=== PATIENT | female | born 1970 | race Caucasian/White ===

== ENCOUNTER 2021-10-11 12:56 | Outpatient (REF) | payer BC, SELFPAY | END 2021-10-11 12:57 | disposition home or self-care (01) | LOC: HO.BBR 12:56 | PROVIDERS: PCP Internal Medicine; Visit Provider Internal Medicine Hematology | DX: D75.1 Secondary polycythemia (principal) | CPT/HCPCS: 85018; 99195 ==

== ENCOUNTER 2021-10-25 07:59 | Outpatient (REF) | payer BC, SELFPAY | END 2021-10-25 08:00 | disposition home or self-care (01) | LOC: HO.BBR 07:59 | PROVIDERS: Visit Provider Internal Medicine Hematology | DX: D75.1 Secondary polycythemia (principal) | CPT/HCPCS: 85014; 85018; 99195 ==

== ENCOUNTER 2021-11-20 07:52 | Outpatient (REF) | payer BC, SELFPAY | END 2021-11-20 07:53 | disposition home or self-care (01) | LOC: HO.BBR 07:52 | PROVIDERS: Visit Provider Internal Medicine Hematology | DX: D75.1 Secondary polycythemia (principal) | CPT/HCPCS: 85018; 99195 ==

== ENCOUNTER 2021-12-13 07:59 | Outpatient (REF) | payer BC, SELFPAY | END 2021-12-13 08:00 | disposition home or self-care (01) | LOC: HO.BBR 07:59 | PROVIDERS: Visit Provider Internal Medicine Hematology | DX: D75.1 Secondary polycythemia (principal) | CPT/HCPCS: 85018; 99195 ==

== ENCOUNTER 2021-12-27 08:27 | Outpatient (REF) | payer BC, SELFPAY | END 2021-12-27 08:28 | disposition home or self-care (01) | LOC: HO.BBR 08:27 | PROVIDERS: Visit Provider Internal Medicine Hematology | DX: D75.1 Secondary polycythemia (principal) | CPT/HCPCS: 85018; 99195 ==

== ENCOUNTER 2022-01-10 08:03 | Outpatient (REF) | payer BC, SELFPAY | END 2022-01-10 08:04 | disposition home or self-care (01) | LOC: HO.BBR 08:03 | PROVIDERS: Visit Provider Internal Medicine Hematology | DX: D75.1 Secondary polycythemia (principal) | CPT/HCPCS: 85014; 85018; 99195 ==

== ENCOUNTER 2022-01-24 07:58 | Outpatient (REF) | payer BC, SELFPAY | END 2022-01-24 07:59 | disposition home or self-care (01) | LOC: HO.BBR 07:58 | PROVIDERS: Visit Provider Internal Medicine Hematology | DX: D75.1 Secondary polycythemia (principal) | CPT/HCPCS: 85014; 85018; 99195 ==

== ENCOUNTER 2022-02-07 07:52 | Outpatient (REF) | payer BC, SELFPAY | END 2022-02-07 07:53 | disposition home or self-care (01) | LOC: HO.BBR 07:52 | PROVIDERS: Visit Provider Internal Medicine Hematology | DX: D75.1 Secondary polycythemia (principal) | CPT/HCPCS: 85018 ==

== ENCOUNTER 2022-03-14 08:01 | Outpatient (REF) | payer BC, SELFPAY | END 2022-03-14 08:02 | disposition home or self-care (01) | LOC: HO.BBR 08:01 | PROVIDERS: Visit Provider Internal Medicine Hematology | DX: D45 Polycythemia vera (principal) | CPT/HCPCS: 85018; 99195 ==

== ENCOUNTER 2022-04-11 08:00 | Outpatient (REF) | payer BC, SELFPAY | END 2022-04-11 08:01 | disposition home or self-care (01) | LOC: HO.BBR 08:00 | PROVIDERS: Visit Provider Internal Medicine Hematology | DX: D45 Polycythemia vera (principal) | CPT/HCPCS: 85014; 85018; 99195 ==

== ENCOUNTER 2022-05-09 08:03 | Outpatient (REF) | payer BC, SELFPAY | END 2022-05-09 08:04 | disposition home or self-care (01) | LOC: HO.BBR 08:03 | PROVIDERS: Visit Provider Internal Medicine Hematology | DX: D45 Polycythemia vera (principal) | CPT/HCPCS: 85014; 85018; 99195 ==

== ENCOUNTER 2022-08-15 08:02 | Outpatient (REF) | payer BC, SELFPAY | END 2022-08-15 08:03 | disposition home or self-care (01) | LOC: HO.BBR 08:02 | PROVIDERS: PCP Internal Medicine; Visit Provider Internal Medicine Hematology | DX: D45 Polycythemia vera (principal) | CPT/HCPCS: 85014; 85018; 99195 ==

== ENCOUNTER 2022-11-21 08:04 | Outpatient (REF) | payer BC, SELFPAY | END 2022-11-21 08:05 | disposition home or self-care (01) | LOC: HO.BBR 08:04 | PROVIDERS: Visit Provider Internal Medicine Hematology | DX: D45 Polycythemia vera (principal) | CPT/HCPCS: 85014; 85018; 99195 ==

== ENCOUNTER 2023-02-20 07:57 | Outpatient (REF) | payer BC, SELFPAY | END 2023-02-20 07:58 | disposition home or self-care (01) | LOC: HO.BBR 07:57 | PROVIDERS: PCP Internal Medicine; Visit Provider Internal Medicine Hematology | DX: D45 Polycythemia vera (principal) | CPT/HCPCS: 85018; 99195 ==

== ENCOUNTER 2023-05-22 07:56 | Outpatient (REF) | payer BC, SELFPAY | END 2023-05-22 07:57 | disposition home or self-care (01) | LOC: HO.BBR 07:56 | PROVIDERS: PCP Internal Medicine; Visit Provider Internal Medicine Hematology | DX: D45 Polycythemia vera (principal) | CPT/HCPCS: 85018; 99195 ==

== ENCOUNTER 2023-07-17 10:54 | Outpatient (REF) | payer BC, SELFPAY | END 2023-07-17 10:55 | disposition home or self-care (01) | LOC: HO.BBR 10:54 | PROVIDERS: PCP Internal Medicine; Visit Provider Internal Medicine Hematology | DX: D45 Polycythemia vera (principal) | CPT/HCPCS: 85014; 85018; 99195 ==

== ENCOUNTER 2023-09-14 10:56 | Outpatient (REF) | payer BC, SELFPAY | END 2023-09-14 10:57 | disposition home or self-care (01) | LOC: HO.BBR 10:56 | PROVIDERS: PCP Internal Medicine; Visit Provider Internal Medicine Hematology | DX: D45 Polycythemia vera (principal) | CPT/HCPCS: 85018; 99195 ==

== ENCOUNTER 2023-11-13 07:55 | Outpatient (REF) | payer BC, SELFPAY | END 2023-11-13 07:56 | disposition home or self-care (01) | LOC: HO.BBR 07:55 | PROVIDERS: PCP Internal Medicine; Visit Provider Internal Medicine Hematology | DX: D45 Polycythemia vera (principal) | CPT/HCPCS: 85018; 99195 ==

== ENCOUNTER 2024-01-14 08:09 | Outpatient (REF) | payer BC, SELFPAY | END 2024-01-14 08:10 | disposition home or self-care (01) | LOC: HO.BBR 08:09 | PROVIDERS: PCP Internal Medicine; Visit Provider Internal Medicine Hematology | DX: D45 Polycythemia vera (principal) | CPT/HCPCS: 85018; 99195 ==

== ENCOUNTER 2024-03-17 08:00 | Outpatient (REF) | payer BC, SELFPAY | END 2024-03-17 08:01 | disposition home or self-care (01) | LOC: HO.BBR 08:00 | PROVIDERS: PCP Internal Medicine; Visit Provider Internal Medicine Hematology | DX: D45 Polycythemia vera (principal) | CPT/HCPCS: 85014; 85018; 99195 ==

== ENCOUNTER 2024-05-19 08:02 | Outpatient (REF) | payer BC, SELFPAY ==
[2024-05-19 08:17] LABS: Basophils Absolute Auto 0.2 X10*3/uL (0.0-0.2); Basophils Percent Auto 1.4 % (0-2); Eosinophils Absolute Auto 0.7 X10*3/uL (0.0-0.4); Eosinophils Percent Auto 5.1 % (0-4); Hematocrit 49.8 % (37.0-47.0); Hemoglobin 14.3 g/dl (12.0-16.0); Imm Gran Abs Auto 0.04 X10*3/uL (0.00-0.03); Imm Gran Pct Auto 0.3 % (0.0-0.4); Lymphocytes Absolute Auto 5.6 X10*3/uL (1.2-4.9); Lymphocytes Percent Auto 43.9 % (20-40); MANUAL DIFF FLAG SCAN; Mean Corpuscular HGB Conc 28.7 g/dl (31.0-35.0); Mean Corpuscular Hemoglobin 19.9 pg (27.0-33.0); Mean Corpuscular Volume 69.2 fL (80.0-98.0); Mean Platelet Volume 9.7 fL (9.4-12.3); Neutrophils Absolute Auto 5.3 x10*3/uL (2.0-8.3); Neutrophils Percent Auto 41.3 % (45-73); Platelet Count 588 X10*3/uL (160-400); SCAN SMEAR FLAG 1; White Blood Count 12.7 X10*3/uL (4.8-10.8)
[2024-05-19 08:42] LABS: SLIDE REVIEW VERIFIED
== END 2024-05-19 08:03 | disposition home or self-care (01) ==
LOC: HO.BBR 08:02
PROVIDERS: PCP Internal Medicine; Visit Provider Internal Medicine Hematology
DX: D45 Polycythemia vera (principal)
CPT/HCPCS: 36415; 85014; 85018; 85025; 99195

== ENCOUNTER 2024-07-20 09:01 | Outpatient (REF) | payer OTHER, SELFPAY ==
[2024-07-20 09:10] LABS: MANUAL DIFF FLAG NO
[2024-07-20 09:12] LABS: Basophils Absolute Auto 0.2 X10*3/uL (0.0-0.2); Basophils Percent Auto 1.6 % (0-2); Eosinophils Absolute Auto 0.3 X10*3/uL (0.0-0.4); Eosinophils Percent Auto 2.3 % (0-4); Hematocrit 51.7 % (37.0-47.0); Hemoglobin 14.8 g/dl (12.0-16.0); Imm Gran Abs Auto 0.06 X10*3/uL (0.00-0.03); Imm Gran Pct Auto 0.5 % (0.0-0.4); Lymphocytes Absolute Auto 4.3 X10*3/uL (1.2-4.9); Lymphocytes Percent Auto 37.1 % (20-40); Mean Corpuscular HGB Conc 28.6 g/dl (31.0-35.0); Mean Corpuscular Hemoglobin 19.8 pg (27.0-33.0); Mean Platelet Volume 9.6 fL (9.4-12.3); Monocytes Absolute Auto 0.6 X10*3/uL (0.1-1.2); Monocytes Percent Auto 5.4 % (2-11); Neutrophils Absolute Auto 6.2 x10*3/uL (2.0-8.3); Neutrophils Percent Auto 53.1 % (45-73); Platelet Count 725 X10*3/uL (160-400); Red Blood Count 7.49 X10*6/uL (4.20-5.50); White Blood Count 11.6 X10*3/uL (4.8-10.8)
== END 2024-07-20 09:02 | disposition home or self-care (01) ==
LOC: HO.BBR 09:01
PROVIDERS: PCP Internal Medicine; Visit Provider Internal Medicine Hematology
DX: D45 Polycythemia vera (principal)
CPT/HCPCS: 36415; 85014; 85018; 85025; 99195

== ENCOUNTER 2024-09-21 08:05 | Outpatient (REF) | payer OTHER, SELFPAY | END 2024-09-21 08:06 | disposition home or self-care (01) | LOC: HO.BBR 08:05 | PROVIDERS: Visit Provider Internal Medicine Hematology | DX: D45 Polycythemia vera (principal) | CPT/HCPCS: 85014; 85018; 99195 ==

== ENCOUNTER 2024-12-19 07:59 | Outpatient (REF) | payer OTHER, SELFPAY ==
[2024-12-19 08:09] LABS: Hematocrit 48.8 % (37.0-47.0); Hemoglobin 13.9 g/dl (12.0-16.0); Imm Gran Abs Auto 0.05 X10*3/uL (0.00-0.03); Imm Gran Pct Auto 0.4 % (0.0-0.4); Lymphocytes Absolute Auto 4.7 X10*3/uL (1.2-4.9); MANUAL DIFF FLAG SCAN; Mean Corpuscular HGB Conc 28.5 g/dl (31.0-35.0); Mean Corpuscular Hemoglobin 19.3 pg (27.0-33.0); Mean Corpuscular Volume 67.9 fL (80.0-98.0); NRBC Abs Auto 0.000 X10*3/uL (0.0-0.012); NRBC Pct Auto 0.0 /100WBC (0.0-0.2); Platelet Count 621 X10*3/uL (160-400); Red Blood Count 7.19 X10*6/uL (4.20-5.50); SCAN SMEAR FLAG 1; White Blood Count 11.9 X10*3/uL (4.8-10.8)
== END 2024-12-19 08:00 | disposition home or self-care (01) ==
LOC: HO.BBR 07:59
PROVIDERS: PCP Internal Medicine; Visit Provider Internal Medicine Hematology
DX: D45 Polycythemia vera (principal)
CPT/HCPCS: 36415; 85025

== ENCOUNTER 2025-04-04 07:58 | Outpatient (REF) | payer OTHER, SELFPAY ==
--- OUTSIDE RECORDS SUMMARY | 2025-04-02 23:59 | XMS_ITS | Continuity of Care Document ---
Author Organization [facility] ancer Care Address [address] [place] [address]- Care Team Providers Care Grand Scribe Name Role Phone Yrn Choe MD Primary Care Physician Encounter [facility] [place] Date(s): 03/03/25 - 04/02/25 [facility] [address] [place] [id number] [phone] Attending Physician: Martin Brandon Admitting Physician: Martin Brandon Referring Physician: Martin Brandon Encounter Type: Triage Medications amLODIPine 5 mg oral tablet 5 mg, 1, tablet, By Mouth, Daily, # 30 tablet, Refills 0, Maintenance, 10/10/21 12:23:00 PM EDT, Partial fill upon patient request if the prescription is for a schedule II opioid drug. Start Date: 10/10/21 Status: Ordered Medication Dispense Status: Completed Quantity: 30.0 Unit: tablet Total Allowed Fills: 1 Fills Dispensed: 0 Problem List Condition Confirmation Course Effective Dates Status Health St atus Informant Polycythemia Confirmed Active Social History Social History Type Response Sex Sex Representation Female (finding) Laboratory * Event Display: Non BH Lab Results Authored Date: * Event Display: Non BH Lab Results Authored Date: * Event Display: Non BH Lab Results Authored Date: Patient Care team information Care Team Personnel Name: Yrn Cohe MD Position: S Physician - Primary Care Member Role: PCP Address: [address] [place] [id number] Telecom: Care Team Related Persons Name: EFRENDEYANIRACHRISTIAN Insurance Providers Guarantor name: LINDA [facility] Plan Information #: 1 Payer: [facility] POS Payer Identifier: NA Member Number: [id number] Group Number: [id number] Subscriber Identifier: SOLEDAD Relationship to Subscriber: self Coverage Type: Commercial Managed Care - HMO Coverage Verification Date: NA Telecom: SOLEDAD Address: NA
--- OUTSIDE RECORDS SUMMARY | 2025-04-04 08:02 | XMS_ITS ---
Author Name Neo Epps Address Unknown Organization [facility] Care Team Providers Care Food Quality Tester Name Role Phone Unavailable Primary Care Physician Unavailab le History Of Present Illness No data Medications Medication Generic Name RxNorm Strength Strength Unit Route Dose Dose Form Frequency Date Started Date Ended Status Indication Sig azelaic acid azelaic acid 2427400 15 % Topica l thin layer gel qd 09/16/19 25 active Appl y thin laye r to face once robyn y prn symp toms metronidazo le metronid azole 107156 0.75 % Topica l thin layer gel qd 07/07/19 25 2024 active Appl y to face twic e robyn y. Can appl y mois turi zer over it. Soolantra ivermect in 6736833 1 % Topica l thin layer cream qd 09/09/19 25 active Appl y once a day in the morn ing. pharmacy compounding accessory pharmacy compound ing accessor y Miscel laneou s misce llane ous 12/17/19 25 active Kay aid crea m brim onid ine 0.03 3%, Oxym etaz francis e 0.5% , Iver mect in 1% amlodipine amlodipi ne 5 mg Oral 1 table t qd active blood pressure Yasir Low Dose Aspirin aspirin 81 mg Oral 1 table t, delay ed relea se (ente jacky coate d) every other day active blood pressure Flax Seed Oil NULL 09/30/19 19 suspend ed Low-Ogestre l NULL 09/30/19 19 active Microgestin 1.5/30 NULL 09/30/19 19 active Vitamin D NULL 09/30/19 19 suspend ed Problems Problem Code Type Status Date of Diagnosis Da te of Resolution Patient encounter status (finding) 093619564(SN OMED) Diagnosis active 03/31/2025 Rosacea (disorder) 632596634(SN OMED) Diagnosis active 03/21/2025 Tinea corporis (disorder) 87827243(SNO MED) Diagnosis active 12/16/2024 Rosacea (disorder) 010079989(SN OMED) Diagnosis active 12/16/2024 Melanocytic nevus of trunk (disorder) 405240753(SN OMED) Diagnosis active 12/16/2024 Melanocytic nevus (disorder) 340849815(SN OMED) Diagnosis active 12/16/2024 Disorder of pigmentation (disorder) 071237443(SN OMED) Diagnosis active 12/16/2024 Disorder of cardiovascular system (disorder) 44005425(SNO MED) Diagnosis active 12/16/2024 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) 04720671(SNO MED) Diagnosis active 12/16/2024 Hemangioma of skin and subcutaneous tissue (disorder) 412137284(SN OMED) Diagnosis active 12/16/2024 Seborrheic keratosis (disorder) 025259075(SN OMED) Diagnosis active 12/16/2024 Patient encounter status (finding) 280818023(SN OMED) Diagnosis active 12/16/2024 Scar conditions and fibrosis of skin (disorder) 764638071(SN OMED) Diagnosis active 12/16/2024 Rosacea (disorder) 065798500(SN OMED) Diagnosis active 09/15/2024 Rosacea (disorder) 570527990(SN OMED) Diagnosis active 07/07/2024 Senile hyperkeratosis (disorder) 218139428(SN OMED) Diagnosis active 11/15/2018 Scar conditions and fibrosis of skin (disorder) 111553783(SN OMED) Diagnosis active 10/13/2018 Personal history of other drug therapy Z92.29(ICD-1 0) Diagnosis active 09/29/2018 Basal cell carcinoma of upper extremity (disorder) 804333244(SN OMED) Diagnosis active 09/29/2018 Encounter for immunization Z23(ICD-10) Diagnosis active 08/16/2018 Senile hyperkeratosis (disorder) 506153951(SN OMED) Diagnosis active 08/16/2018 History of clinical finding in subject (situation) 630451187(SN OMED) Problem active Rosacea (disorder) 786627002(SN OMED) Problem active History of skin disorder (situation) 606174412(SN OMED) Problem active Results No data Encounters Service provided at [facility], [address] [place] [address], [address], [place], [place] [id number]. Office phonenumber is [phone]. Office fax number is [phone]. Encounter Diagnosis Location Date / Time Type Cosmetic (Z41.9) [facility] 03/31/2025 14:00:00 [facility] Reason For Referral No data Procedures Procedure Date Potassium hydroxide preparation (procedu re) 12/16/2024 12:00 am [place] Documentation of past medical history (p rocedure) Documentation of past medical history (p rocedure) Documentation of past medical history (p rocedure) Documentation of past medical history (p rocedure) Documentation of past medical history (p rocedure) Documentation of past medical history (p rocedure) null Review Of Systems No Data Assessment 1.CosmeticOther (Cosmetic) Plan of Care Code Detail Instructions 228181 pharmacy compounding accessory R oseaid cream brimonidine 0.033%, Oxymetazoline 0.5%, Ivermectin 1% 083964 pharmacy compounding accessory R oseaid cream brimonidine 0.033%, Oxymetazoline 0.5%, Ivermectin 1% 7296765 azelaic acid 15 % topical gel Ap ply thin layer to face once daily prn symptoms 5597661 Soolantra 1 % topical cream Appl y once a day in the morning. 804530 metronidazole 0.75 % topical gel Apply to face twice daily. Can apply moisturizer over it. Instructions No Data Social History Code Activity Start Date End Date 630944377 (SNOMED) Never smoker Sex female Sexual orientation Don't Know Gender identity Unspecified Vital Signs No data
--- OUTSIDE RECORDS SUMMARY | 2025-04-04 08:02 | XMS_ITS | Clinical Summary ---
Author Organization [facility] Address [address] [place] [address] Phone Care Team Providers Care Route Supervisor Name Role Phone Yrn Choe MD Primary Care Provider Allergies No known active allergies Medications calcium carbonate-vitami n D3 500-100 mg-unit Chew Active omega 6-pdw-ukv-fish oil 1,000 mg (120 mg-180 mg) Cap 1 capsule Active cholecalciferol (VITAMIN D3) 1,000 unit tablet 1 tablet Active flaxseed Powd Take by mouth. A ctive levonorgestreL (MIRENA) 20 mcg/24 hours (5 yrs) 52 mg intrauterine device 1 Device by Intrauterine route Once every 5 years. Active amLODIPine (NORVASC) 5 MG tablet Take 5 mg by mouth. 2 Active aspirin 81 MG EC tablet Take 81 mg by mouth daily. Active Hospital, Clinic, or Other Facility Administered Medication Ordered Dose Route Frequency Start Date End Date Status levonorgestrel (MIRENA) 20 mcg/24 hr (5 years) intrauterine device 1 eachIndications:Encounter for insertion of intrauterine contraceptive device 1 each Utrn Every 5 years 07/29/2018 A ctive Active Problems Problem Noted Date Diagnosed Date IUD (intrauterine device) in place 07/29/2018 Overview (07/29/2018): Nuno 07/29/18 Assessment & Plan (11/19/2021 10:35 AM EDT): We discussed plan with Nuno in perimenopause - Linda will likely keep until due for removal in [phone] unless has any problems with it or clear menopausal sx warranting further evaluation. Skin hypopigmentation 07/13/2017 Assessment & Plan (07/13/2017 12:37 PM EST): Exam findings reviewed; we discussed differential diagnoses including LS, benign dermatologic change or most rarely ASHA. MD consult advised and accepted. Resolved Problems Problem Noted Date Diagnosed Date Resolved Date Lichen sclerosus 08/17/2017 08/01/2019 Assessment & Plan (08/17/2017 9:38 PM EDT): Exam findings consistent with lichenoid process - most likely lichen sclerosus given presentation. Reviewed diagnosis (autoimmune condition resulting in scar tissue/adhesion formation of vulvar tissues). Discussed role of topical steroids in prevents further architectural changes from occurring. Relevant patient handout provided. Rx given for triamcinolone, application instructions reviewed and mirror used to both show patient anatomic changes and instruct her in how to apply triamcinolone. Can also use barrier (i.e. Coconut oil) as regular moisturizer and lubricant with intercourse. If Linda develops symptoms or does not improve with steroid trial, consider vulvar biopsy for definitive diagnosis. Immunizations Immunization Administration Dates Next Due INFLUENZA, SPLIT VIRUS, TRIVALENT PF 02/03/2017, 04/10/2015 Influenza Quadrivalent MDCK Preservative Free IM 03/02/2019,03/17/2018 Influenza Quadrivalent Preservative Free IM 03/09 Family History Medical History Relation Comments Other Brother Pacemaker Brother Heart disease Father at 70 Other Father Family history o f cardiovascular disease Hypertension Mother Relation Status Comments Brother Father Mother Social History Tobacco Use Types Packs/Day Years Used Date Smoking Tobacco: Never Smokeless Tobacco: Never Alcohol Use Standard Drinks/Week Comments No 0 (1 standard drink = 0.6 oz pur e alcohol) Education Answer Date Recorded Are you interested in more education? Not on belén e 10/03/2022 Are you concerned about learning? Not on file 10/03/2022 No 10/03/2022 No 10/03/2022 Digital Access Answer Date Recorded No 11/01/2022 No 11/01/2022 Reliable internet access at home? Not on file 11/01/2022 Device with a working camera? Not on file Comments No Sex and Gender Information Value Date Recorded Sex Assigned at Not on file Legal Sex Female 9:34 PM EDT Gender Identity Not on file Sexual Orientation Not on file Last Filed Vital Signs Vital Sign Reading Time Taken Comments Blood Pressure 128/70 02/09/2024 9:45 AM EDT Pulse - - Temperature - - Respiratory Rate - - Oxygen Saturation - - Inhaled Oxygen Concentration - - Weight 59 kg (130 lb) 02/09/2024 9:45 AM EDT Height 162.6 cm (5' 4 ) 02/09/2024 9:45 AM EDT Body Mass Index 22.31 02/09/2024 9:45 AM EDT Plan of Treatment Health Maintenance Due Date Last Done Comments LIPID PANEL 1970 DEPRESSION SCREENING 1982 HEPATITIS C SCREENING 1988 HIV ONE-TIME SCREENING (18-65 YEARS) 1988 MAMMOGRAM 04/29/2015 04/29/2013 COLOGUARD 2015 COLONOSCOPY 2015 COLORECTAL CANCER SCREENING 2015 FIT TEST 2015 FOBT 2015 SIGMOIDOSCOPY 2015 VIRTUAL COLONOSCOPY 2015 PNEUMOCOCCAL VACCINES (50+ years) (1 of 1 - PCV) 2020 ZOSTER VACCINES (1 of 2) 2020 INFLUENZA VACCINE (#1) 2025 , 03/13/2021, 01/30/2020, Additional history exists COVID-19 VACCINE (2024- season) 2025 IUD 07/29/2026 07/29/2018 PAP SMEAR 11/19/2026 11/19/2021, 0208/2016, 07/11/2016 Adult Td,Tdap Booster 08/24/2031 08/23/2021 RSV VACCINE (1 - 1-dose 75+ series) 2045 SMOKING STATUS SCREENING (Once After 26 Yrs) Completed 02/09/2024 HEPATITIS A VACCINES Aged Out No long er eligible based on patient's age to complete this topic HIB VACCINES Aged Out No longer eligi ble based on patient's age to complete this topic MENINGOCOCCAL VACCINES (ACWY) Aged Out No longer eligible based on patient's age to complete this topic MENINGOCOCCAL VACCINES (B) Aged Out N o longer eligible based on patient's age to complete this topic Medical Devices Not on file Procedures Procedure Name Priority Date/Time Associated Diagnosis Comments PAP TEST Routine 11/19/2021 12:00 AM EDT from Last 3 Months or Most Recently Relevant to Health Maintenance Results * Pap Smear (11/19/2021 12:00 AM EDT) 11/19/2021 11/20/2021 8:4 1 AM EDT Narrative SEE NARRATIVE - 11/25/2021 12:39 [place] [address] Computer Security Manager: Eda Castillo MD COSTUME DIRECTOR Cytology Report FINAL DIAGNOSIS A. PAP SMEAR (SUREPATH) CE: SPECIMEN ADEQUACY: Satisfactory for evaluation; transformation zone absent/insufficient. INTERPRETATION: NEGATIVE FOR INTRAEPITHELIAL LESION OR MALIGNANCY. Reactive changes. Electronically Signed Out By: YOGESH Castellanos MD(ASCP) By his/her signature above, the pathologist listed as making the Final Diagnosis certifies that he/she has personally reviewed this case and confirmed or corrected the diagnosis. The Pap test is a screening test primarily for squamous cancers and precursors and has associated false-negative and false-positive results. New technologies such as liquid-based preparations may decrease but will not eliminate all false-negative results. Regular sampling and follow-up of unexplained clinical signs and symptoms are recommended to minimize false negative results. PROCEDURES/ADDENDA HPV Testing (Requested) Ordered Date: 11/20/2021 A. PAP SMEAR (SUREPATH) CE: Human Papilloma Virus Test Negative for high-risk human papillomavirus types 16, 18, 45 and the Other high risk probe set (Includes 31, 33, 35, 39, 51, 52, 56, 58, 59, 66, 68) by [employer] Onclarity HR-HPV analysis. Clinical correlation is advised. This HPV test was performed at [facility], [address] [place] [address]. This test has been FDA approved for SurePath cervical cytology specimens. The accuracy and precision of this test for all other specimen sources has been verified in the Cytopathology Laboratory of the [facility] and has not been cleared or approved by the U.S. Food and Drug Administration. Clinical correlation is advised. CLINICAL HISTORY Date of Last Menstrual Period: Not Provided Menstrual History: Sharmila-Menopausal Unknown Contraceptive History: IUD Other Clinical Conditions: Screening Pap SPECIMEN SOURCE A: PAP SMEAR (SUREPATH) CE Patient Name: LINDA PEREZ : 1970 (Age: 51) Sex: F Institution: [facility] Location: [facility] Date of Collection: 11/19/2021 Date of Reported: 11/25/2021 12:39 Results to: Jamia Blankenship MSN, BS Jamia Blankenship PRODUCT DEVELOPMENT ACTUARY CYTOLOGY ORDERABLES Final Resu lt SEE NARRATIVE from Last 3 Months or Most Recently Relevant to Health Maintenance [place] [address] [place] [address] PPO [facility] OUT OF [facility] PPO [employer] OUT OF STATE PPO [employer] OUT OF STATE PPO [employer] OUT OF STATE PPO [facility] OUT STATE PPO Care Teams Route Supervisor Relationship Specialty Start Date End Date Yrn Choe MD [address] [place] [address] PCP - General 06/11/17 Additional Source Comments The information contained in this document represents components of the legal health record. It is not the complete legal health record.[facility]
== END 2025-04-04 07:59 | disposition home or self-care (01) ==
LOC: HO.BBR 07:58
PROVIDERS: PCP Internal Medicine; Visit Provider Internal Medicine Hematology
DX: D45 Polycythemia vera (principal)
CPT/HCPCS: 85018; 99195

== ENCOUNTER 2025-04-18 12:57 | Outpatient (REF) | payer OTHER, SELFPAY ==
[2025-04-18 13:15] LABS: Hemoglobin 15.4 g/dl (12.0-16.0); Imm Gran Abs Auto 0.04 X10*3/uL (0.00-0.03); Imm Gran Pct Auto 0.3 % (0.0-0.4); Lymphocytes Absolute Auto 5.6 X10*3/uL (1.2-4.9); MANUAL DIFF FLAG SCAN; Mean Corpuscular HGB Conc 27.7 g/dl (31.0-35.0); Mean Corpuscular Hemoglobin 19.2 pg (27.0-33.0); Mean Corpuscular Volume 69.2 fL (80.0-98.0); NRBC Abs Auto 0.000 X10*3/uL (0.0-0.012); NRBC Pct Auto 0.0 /100WBC (0.0-0.2); Platelet Count 608 X10*3/uL (160-400); Red Blood Count 8.02 X10*6/uL (4.20-5.50); SCAN SMEAR FLAG 1; White Blood Count 14.4 X10*3/uL (4.8-10.8)
[2025-04-18 13:19] LABS: Hematocrit 55.5 % (37.0-47.0)
--- OUTSIDE RECORDS SUMMARY | 2025-04-18 14:40 | XMS_ITS | Clinical Summary ---
Author Organization [facility] Address [address] [place] [address] Phone Care Team Providers Care Air Hole Driller Name Role Phone Yrn Choe MD Primary Care Provider Allergies No known active allergies Medications calcium carbonate-vitami n D3 500-100 mg-unit Chew Active omega 8-jpg-ttd-fish oil 1,000 mg (120 mg-180 mg) Cap [...] likely keep until due for removal in [id number] unless has any problems with it or [...] Smear (11/19/2021 12:00 AM EDT) 11/19/2021 11/20/2021 8: 41 AM EDT Narrative SEE NARRATIVE - 11/25/2021 12:39 [place] [address] Programs Director: Eda Castillo MD GLUED WOOD TESTER Cytology Report FINAL DIAGNOSIS A. PAP SMEAR [...] 52, 56, 58, 59, 66, 68) by [employer] Onclarity HR-HPV analysis. Clinical correlation is advised. This HPV test was performed at [facility], [address] [place] [address]. This test has been FDA approved for SurePath cervical cytology specimens. The accuracy and precision of this test for all other specimen sources has been verified in the Cytopathology Laboratory of the [facility] and has not been cleared or approved by the U.S. Food and Drug Administration. Clinical correlation is advised. CLINICAL HISTORY Date of Last Menstrual Period: Not Provided Menstrual History: Sharmila-Menopausal Unknown Contraceptive History: IUD Other Clinical Conditions: Screening Pap SPECIMEN SOURCE A: PAP SMEAR (SUREPATH) CE Patient Name: LINDA PEREZ : 1970 (Age: 51) Sex: F Institution: [facility] Location: [facility] Date of Collection: 11/19/2021 Date of Reported: 11/25/2021 12:39 Results to: Jamia Blankenship MSN, BS Jamia Blankenship PRINTING MACHINE MECHANIC CYTOLOGY ORDERABLES Final Resu lt SEE NARRATIVE from Last 3 Months or Most Recently Relevant to Health Maintenance [place] [place] [address] OUT [facility] PPO [facility] OUT OF [facility] PPO BLUE [employer]OSS OUT OF STATE PPO BL[employer] OUT OF STATE PPO [employer] OUT OF STATE PPO [facility] OUT OF STATE PPO Care Teams Air Hole Driller Relationship Specialty Start Date End Date Yrn Choe MD [address] [place] [address] PCP - General 06/11/17 Additional Source Comments The information contained in this document represents components of the legal health record. It is not the complete legal health record.[facility]
== END 2025-04-18 12:58 | disposition home or self-care (01) ==
LOC: HO.BBR 12:57
PROVIDERS: PCP Internal Medicine; Visit Provider Internal Medicine Hematology
DX: D45 Polycythemia vera (principal)
CPT/HCPCS: 36415; 85014; 85018; 85025; 99195